=== PATIENT | female | born 2000 | race Caucasian/White ===

== ENCOUNTER 2018-04-12 12:55 | Emergency (ER) | payer BC ==
[2018-04-12] MEDS ORDERED: Ibuprofen TAB* 600 MG PO ONE (13:15)
--- NOTE | 2018-04-12 13:25 | UC ---
Lower Extremity/Ankle HPI - HPI Summary HPI Summary: brenda was wearing high heels last pm and "rolled" her ankle and fell to ground. she remained ambulatory after fall today R ankle swollen and painful - History of Current Complaint Chief Complaint: UCLowerExtremity Stated Complaint: ANKLE INJURY Time Seen by Provider: 04/12/18 12:57 Hx Obtained From: Patient Hx Last Menstrual Period: now ?: No Onset/Duration: Sudden Onset Severity Initially: Moderate Severity Currently: Moderate Pain Intensity: 4 Aggravating Factor(s): Standing, Ambulation Alleviating Factor(s): Rest, Elevation Able to Bear Weight: Yes - Allergies/Home Medications Allergies/Adverse Reactions: Allergies Allergy/AdvReac Type Severity Reaction Status Date / Time No Known Allergies Allergy Verified 04/12/18 13:08 Home Medications: Home Medications NK [No Home Medications Reported] 04/12/18 [History Confirmed 04/12/18] PMH/Surg Hx/FS Hx/Imm Hx Previously Healthy: Yes - Surgical History Surgical History: Yes Surgery Procedure, Year, and Place: T & A - Family History Known Family History: Positive: None Negative: Hypertension, Diabetes - Social History Occupation: Student Lives: With Family Alcohol Use: Occasionally Substance Use Type: None Smoking Status (MU): Never Smoked Tobacco Review of Systems Constitutional: Negative Skin: Negative Respiratory: Negative Cardiovascular: Negative Musculoskeletal: Decreased ROM - R ankle Neurological: Negative Psychological: Negative Is Patient Immunocompromised?: No All Other Systems Reviewed And Are Negative: Yes Physical Exam Triage Information Reviewed: Yes Appearance: Well-Appearing, No Pain Distress, Well-Nourished Vital Signs: Initial Vital Signs Temp 98.4 F 04/12/18 13:06 Pulse 94 04/12/18 13:06 Resp 18 04/12/18 13:06 BP 133/79 04/12/18 13:06 Pulse Ox 100 04/12/18 13:06 Vital Signs Reviewed: Yes Respiratory Exam: Normal Cardiovascular Exam: Normal Musculoskeletal: Positive: ROM Limited @ - R ankl ed/t swelling and pain Neurological Exam: Normal Neurological: Positive: Alert Psychological Exam: Normal Skin Exam: Normal - superficial bruise L knee Lower Extremity Course/Dx - Differential Dx/Diagnosis Differential Diagnosis/HQI/PQRI: Fracture (Closed), Sprain Provider Diagnoses: R ankle sprain Discharge - Sign-Out/Discharge Documenting (check all that apply): Patient Departure All imaging exams completed and their final reports reviewed: No - final report not ready before discharge - Discharge Plan Condition: Good Disposition: HOME Patient Education Materials: Ankle Sprain (DC) Referrals: No Primary Care Phys,NOPCP [Primary Care Provider] - Additional Instructions: ice and elevate ankle use over the counter ibuprofen as directed for pain use ankle splint for 5-7 days follow-up with [facility] if no better 5 days - Billing Disposition and Condition Condition: GOOD Disposition: Home
--- NOTE | 2018-04-12 14:05 | RAD ---
Indication: Pain after right ankle injury 3 views of the right ankle demonstrates ankle mortise to be intact. Soft tissue swelling is noted. IMPRESSION: Soft tissue swelling without evidence of fracture.
--- NOTE | 2018-04-12 17:26 | UC ---
- Progress Note Progress Note: XR final read: IMPRESSION: Soft tissue swelling without evidence of fracture. No change in plan of care Discharge - Sign-Out/Discharge Documenting (check all that apply): Post-Discharge Follow Up All imaging exams completed and their final reports reviewed: Yes - Discharge Plan Condition: Good Disposition: HOME Patient Education Materials: Ankle Sprain (DC) Referrals: No Primary Care Phys,NOPCP [Primary Care Provider] - Additional Instructions: ice and elevate ankle use over the counter ibuprofen as directed for pain use ankle splint for 5-7 days follow-up with [facility] if no better 5 days - Billing Disposition and Condition Condition: GOOD Disposition: Home
== END 2018-04-12 13:50 | disposition home or self-care (01) ==
LOC: UCEAST 12:55
DX: S93.401A Sprain of unspecified ligament of right ankle, initial encounter (principal); W01.0XXA Fall on same level from slipping, tripping and stumbling without subsequent striking against object, initial encounter; Y92.9 Unspecified place or not applicable
CPT/HCPCS: 99203; A9270-GY; G0463